=== PATIENT | female | born 1950 | race African-American/Black ===

== ENCOUNTER 2019-03-27 07:43 | Day surgery (SDC) | payer BC, OTHER ==
[2019-03-24 17:50] VITALS: BMI 23.3
[2019-03-27] MEDS ORDERED: MIDAZOLAM HCL 2 MG/2 ML SINGLE DOSE VIAL ONE (08:39)
[2019-03-27] MEDS ORDERED: PROPOFOL 20 ML ONE (08:39)
[2019-03-27] MEDS ORDERED: ONDANSETRON 4 MG/2 ML VIAL IVPUSH PRN (08:56)
[2019-03-27] MEDS ORDERED: oxyCODONE HCL 5 MG TABLET PO PRN (08:56)
[2019-03-27] MEDS ORDERED: LACTATED RINGERS SOLUTION 1,000 ML IV SCH (09:00)
[2019-03-27] MEDS ORDERED: BUPIVACAINE HCL/PF 0.5% (5MG/ML) 10 ML VIAL ONE (09:18)
[2019-03-27] MEDS ORDERED: MORPHINE SULFATE 10 MG/1 ML *VIAL ONE (09:20)
[2019-03-27] MEDS ORDERED: ceFAZolin SODIUM 1 GM VIAL ONE (09:28)
[2019-03-27] MEDS ORDERED: DEXAMETHASONE SOD PHOSPHATE 4 MG/1 ML VIAL ONE (09:43)
[2019-03-27] MEDS ORDERED: ONDANSETRON 4 MG/2 ML VIAL ONE (09:43)
[2019-03-27] MEDS ORDERED: EPHEDRINE SULFATE/0.9% NACL/PF 50 MG/10 ML SYRINGE NR ONE (09:52)
[2019-03-27] MEDS ORDERED: BUPIVACAINE HCL/PF 0.5% (5MG/ML) 10 ML VIAL IJ ONE ×2 (10:21)
[2019-03-27] MEDS ORDERED: MORPHINE SULFATE/PF 10 MG/ML ML IT ONE (10:21)
--- NOTE | 2019-03-27 11:49 | OP ---
DATE OF OPERATION: 03/27/2019 PREOPERATIVE DIAGNOSIS: Torn medial meniscus to the left knee. POSTOPERATIVE DIAGNOSES: 1. 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 2. Inferior patellar surface damage. 3. Hypertrophic synovium. 4. Tearing of the medial meniscus and lateral meniscus. 5. Extensive joint debris. PROCEDURE PERFORMED: 1. Microdrilling to osteochondritis dissecans lesion to the medial femoral condyle of 1 cm in diameter. 2. Extensive chondral shaving and chondroplasty to the inferior patellar surface. 3. Partial medial and lateral meniscectomy. 4. Extensive joint debridement. 5. Extensive partial synovectomy. SURGEON: Christine Paetl MD [employer]LECT[employer] ASSEMBLER: None. ANESTHESIA: Peg Brown MD TYPE OF ANESTHESIA: General anesthesia was performed. DESCRIPTION OF PROCEDURE: The patient being brought into the operating room and gently transferred from the stretcher to the operating room table with all bony prominences well padded. The left leg was prepared and draped in a sterile fashion. The patient was given intravenous antibiotics and copious irrigation throughout the procedure to minimize risk for infection. A complete risk, benefit, alternative discussion was conducted with the patient, which was inclusive of, but not limited to, infection, bleeding, , paralysis, increased pain, need for repeat surgery. Patient asked questions, understood the procedure, and desired to proceed with surgical treatment. Following sterile preparation and draping of the left leg, an appropriate time-out was conducted, which was inclusive of, but not limited to, type of surgery, site of surgery, surgeon, and anesthesiologist. Following sterile preparation and draping of the left leg, the leg was exsanguinated using a rubber Esmarch bandage, and tourniquet was inflated to 325 mmHg. Suprapatellar, medial, and lateral joint line portals were used to introduce the arthroscope and arthroscopic instruments. The knee was examined. There was noted to be hypertrophic synovium in the suprapatellar pouch, and an extensive partial synovectomy was performed. Medial and lateral gutters were without plica and no loose body. Medial meniscus was found to have a tear of the posterior horn, and this was resected using shaver and radiofrequency wand. The medial femoral condyle was noted to have an osteochondritis dissecans lesion, and this was 1 cm in diameter. This was debrided using shaver and radiofrequency wand, and microdrilling using a 0.62-mm drill was used to create a drilling pattern with appropriate spacing of the drill holes to allow local stem cell recruitment to fill the defect. The interchondylar region was noted to have extensive joint debris, and extensive joint debridement was performed. Cruciate ligaments were found to be intact. Lateral meniscus was found to have a tear of the posterior horn, and this was resected using shaver, radiofrequency wand, and arthroscopic meniscectomy tools of appropriate angle and shape. The knee was then copiously irrigated with sterile saline irrigant. The wounds were closed with 4-0 undyed Vicryl, and the tourniquet was deflated after approximately 25 minutes of tourniquet time. There were no known intraoperative complications. CHRISTINE PATEL M.D. [id number]
[2019-03-27] MEDS ORDERED: ACETAMINOPHEN 325 MG TABLET (FP) ONE (12:26)
[2019-03-27 14:05] VITALS: TEMP 98
[2019-03-27 17:40] VITALS: BP 105/67; PULSE 69
== END 2019-03-27 15:30 | disposition home or self-care (01) ==
LOC: FASU 07:43
PROVIDERS: ATTEND Orthopaedic Surgery
PROC: 0SBD4ZZ Excision of Left Knee Joint, Percutaneous Endoscopic Approach (ICD-10-PCS; 2019-03-27)
PROC: 0SQD4ZZ Repair Left Knee Joint, Percutaneous Endoscopic Approach (ICD-10-PCS; 2019-03-27)
PROC: 0SBD4ZZ Excision of Left Knee Joint, Percutaneous Endoscopic Approach (ICD-10-PCS; 2019-03-27)
PROC: 0SBD4ZZ Excision of Left Knee Joint, Percutaneous Endoscopic Approach (ICD-10-PCS; principal; 2019-03-27 10:00)
DX: S83.242A Other tear of medial meniscus, current injury, left knee, initial encounter (principal); S83.282A Other tear of lateral meniscus, current injury, left knee, initial encounter; M93.262 Osteochondritis dissecans, left knee; M25.862 Other specified joint disorders, left knee; X58.XXXA Exposure to other specified factors, initial encounter; Y93.9 Activity, unspecified; Y92.9 Unspecified place or not applicable
CPT/HCPCS: 29880; 29886; G0289; 94760

== ENCOUNTER 2020-10-24 06:05 | Day surgery (SDC) | payer BC, OTHER ==
[2020-10-18 15:56] VITALS: BMI 23.3
[2020-10-24] MEDS ORDERED: ONDANSETRON 4 MG/2 ML VIAL ONE (07:17)
[2020-10-24] MEDS ORDERED: DEXAMETHASONE SOD PHOSPHATE 4 MG/1 ML VIAL ONE (07:17)
[2020-10-24] MEDS ORDERED: LIDOCAINE HCL/PF 2% SDV 5ML VIAL ONE (07:17)
[2020-10-24] MEDS ORDERED: SUCCINYLCHOLINE CHLORIDE 200 MG/10 ML SYRINGE ONE (07:18)
[2020-10-24] MEDS ORDERED: EPHEDRINE SULFATE/0.9% NACL/PF 50 MG/10 ML SYRINGE NR ONE (07:18)
[2020-10-24] MEDS ORDERED: PROPOFOL 20 ML ONE ×2 (07:19)
[2020-10-24] MEDS ORDERED: MIDAZOLAM HCL 2 MG/2 ML SINGLE DOSE VIAL ONE (07:30)
[2020-10-24] MEDS ORDERED: ROPIVACAINE HCL 0.5% 30ML VIAL ONE (07:31)
[2020-10-24] MEDS ORDERED: oxyCODONE HCL 5 MG TABLET PO PRN ×2 (09:06)
[2020-10-24] MEDS ORDERED: ONDANSETRON 4 MG/2 ML VIAL IVPUSH PRN (09:06)
[2020-10-24] MEDS ORDERED: LACTATED RINGERS SOLUTION 1,000 ML IV SCH (09:15)
[2020-10-24 10:51] VITALS: BP 120/74; PULSE 82; TEMP 97.7
== END 2020-10-24 10:51 | disposition home or self-care (01) ==
LOC: FASU 06:05
PROVIDERS: ATTEND Orthopaedic Surgery
PROC: 0RNK4ZZ Release Left Shoulder Joint, Percutaneous Endoscopic Approach (ICD-10-PCS; 2020-10-24)
PROC: 0RQK4ZZ Repair Left Shoulder Joint, Percutaneous Endoscopic Approach (ICD-10-PCS; principal; 2020-10-24 08:22)
DX: M75.42 Impingement syndrome of left shoulder (principal); M75.02 Adhesive capsulitis of left shoulder; M75.102 Unspecified rotator cuff tear or rupture of left shoulder, not specified as traumatic; M25.612 Stiffness of left shoulder, not elsewhere classified; M65.812 Other synovitis and tenosynovitis, left shoulder; S43.432A Superior glenoid labrum lesion of left shoulder, initial encounter; X58.XXXA Exposure to other specified factors, initial encounter; Y92.9 Unspecified place or not applicable; Y93.9 Activity, unspecified
CPT/HCPCS: 94760